=== PATIENT | male | born 1970 | race Caucasian/White ===

== ENCOUNTER 2016-08-05 05:41 | Outpatient (CLI) | payer BC ==
[~2016-08-05] VITALS: Ht 175.3 cm; Wt 78.0 kg
== END 2016-08-05 16:13 ==
LOC: PREOP 05:41
PROVIDERS: ATTEND Surgery
DX: Z01.818 Encounter for other preprocedural examination (principal); Z12.11 Encounter for screening for malignant neoplasm of colon

== ENCOUNTER → 2016-08-09 | Day surgery (SDC) | payer BC ==
[~2016-08-09] VITALS: Ht 175.3 cm; Wt 78.0 kg
[~2016-08-09] MED LIST: FLUMAZENIL (ROMAZICON) 0.1 MG/ML 5 ML VIAL INJ PRN; MIDAZOLAM 2 MG/2 ML (VERSED) VIAL ONE; NALOXONE 0.4 MG/ML 1 ML (NARCAN) VIAL IVP PRN; NS IV 500 ML 0 ML ONE; NS IV 500 ML 500 ML IV ONE; NS IV 500 ML 500 ML ONE; fentaNYL INJECTION 100 MCG/2 ML AMP ONE
--- NOTE | 2016-08-09 08:29 | Conscious Sedation/ASA ---
Conscious Sedation Pre-Proced ASA Class: 2 Airway Mallampati Classification: ([place] appropriate class) I. II. III, IV Lungs Heart ASA score ASA 1: a normal healthy patient ASA 2: a patient with a mild systemic disease (mid diabetes, controlled hypertension, obesity ASA 3: a patient with a severe systemic disease that limits activity (angina , COPD, prior Myocardial infarction) ASA 4: a patient with an incapacitating disease that is a constant threat to life (CHF, renal failure) ASA 5: a moribund patient not expected to survive 24 hrs. (ruptured aneurysm) ASA 6: a declared brain patient whose organs are being harvested. For emergent operations, add the letter E after the classification Grade 1 Sedation Plan: Discussed options with patient/fam Note The patient is an appropriate candidate to undergo the planned procedure, sedation, and anesthesia. The patient immediately re-assessed prior to indication. ELVIS CROWDER MD Aug 09, 2016 8:29 am
[2016-08-09 08:36] VITALS: BP 123/97
[2016-08-09] MEDS: fentaNYL INJECTION 100 MCG/2 ML AMP IVP PRN ×2 (09:27→09:35)
[2016-08-09] MEDS: MIDAZOLAM 2 MG/2 ML (VERSED) VIAL IVP PRN ×3 (09:30→09:38)
--- NOTE | 2016-08-09 09:47 | Endoscopy Procedure Report ---
Endoscopy Report Date: Aug 09, 2016 Preoperative Diagnosis: screening Study Performed: Colonoscopy Procedure Instrument: Colonoscope Endo Procedure/Findings Findings 1.: Normal Recommendations: Recommendations: 1.: Colonscopy in 10 years Copy Copies To 1: KAYDEN CHOE MD, XAVIER M MD Aug 09, 2016 9:47 am
--- NOTE | 2016-08-09 09:48 | Discharge Inst-Simple/Standard ---
Discharge Inst-Standard Discharge Medications New, Converted or Re-Newed RX: Other Patient Instructions/Follow Up Plan of Care/Instructions/FU: repeat colonoscopy in 10 years Activity as Tolerated: Yes Discharge Diet: No Restrictions ELVIS CROWDER MD Aug 09, 2016 9:48 am
[2016-08-09 09:55] VITALS: BP 101/69
[2016-08-09 10:37] VITALS: BP 124/94
[2016-08-09 10:55] VITALS: BP 124/94
--- NOTE | 2016-08-09 11:26 | OPERATIVE REPORT ---
PROCEDURE PHYSICIAN: ELVIS CROWDER DATE OF PROCEDURE: 08/09/2016 PROCEDURE: Screening colonoscopy. SURGEON: Dr. Crowder. INDICATION FOR THE PROCEDURE: This gentleman came in for screening colonoscopy. Informed consent was obtained after reviewing the procedure in detail. DESCRIPTION OF PROCEDURE: He was placed in left lateral decubitus position and his vital signs were monitored. Conscious sedation was achieved using Versed and fentanyl. Digital rectal examination was unremarkable. The colonoscope was introduced into the rectum and advanced all the way up to the cecum. The scope was then withdrawn slowly and the mucosa examined in a systematic fashion. There was no abnormality. He tolerated the procedure well and was taken back to the nursing area in a stable condition. IMPRESSION: 1. Normal screening colonoscopy. 2. No family history. 3. Recommend repeating in 10 years. Job ID: [id number] Dictated Date: 08/09/2016 09:46:55 Sheriff Sergeant Date: 08/09/2016 11:24:07 / angelo MARTINEZ
== END | disposition home or self-care (01) ==
LOC: ENDO 08:02
PROVIDERS: ATTEND Surgery
DX: Z12.11 Encounter for screening for malignant neoplasm of colon (principal)